=== PATIENT | male | born 1950 | race Two or more races ===

== ENCOUNTER 2024-11-01 21:14 | Emergency (ER) | payer OTHER, SELFPAY ==
[2024-11-01 21:16] VITALS: BP 127/75; PULSE 109; RESP 18; TEMP 36.8; O2SAT 96; BMI 24.7
--- NOTE | 2024-11-02 00:16 | PD.EDWOUND ---
ED Wound/Laceration-RME/HPI General Chief Complaint: Wound/Laceration Stated Complaint: LAC TO RIGHT FINGER Time Seen by Provider: 11/02/24 00:05 Arrival date/time: 11/01/24 21:14 74M with history of HTN and DM presents to ED with R middle finger lac after he accidentally cut himself with a drill. Patient has not had a tetanus shot in the past 5 years. Limitations: no limitations Related Data Home Medications ?Medication ?Instructions ?Recorded ?Confirmed Benazepril Hcl 40 mg PO QAM ##0 03/09/13 Glyburide/Metformin Hcl 2 tab PO BID Diabetes ##0 03/09/13 (Glyburide-Metformin 5-500 Mg) insulin glargine 100 unit/mL (3 10 unit SQ HS Diabetes ##0 03/09/13 mL) subcutaneous pen (Lantus Solostar U-100 Insulin) pioglitazone 45 mg tablet (Actos) 45 mg PO QDAY Diabetes #0 tabs 03/09/13 sitagliptin phosphate 100 mg 100 mg PO QDAY Diabetes #0 tabs 03/09/13 tablet (Januvia) Albuterol Sulfate HFA (INHALER) 2 puff inhalation Q6HR #0 05/13/13 (PROVENTIL HFA (INHALER)) inhalations Dutasteride/Tamsulosin HCl (Ana María 1 cap QDAY ##0 05/13/13 0.5-0.4 mg Capsule) Tiotropium [place] * (SPIRIVA *) 1 cap inhalation QDAY #0 puffs 05/13/13 Previous Rx's ?Medication ?Instructions ?Recorded amoxicillin 875 mg-potassium 1 tab PO BID 7 days #14 tabs 11/02/24 clavulanate 125 mg tablet Allergies Allergy/AdvReac Type Severity Reaction Status Date / Time No Known Allergies Allergy Unknown Verified 06/24/14 09:11 Review of Systems Review of Systems Systems Reviewed: All systems reviewed, normal except as documented Constitutional Constitutional: Reports system reviewed and no additional complaints, except as documented, Denies fever(s) and Denies headache(s) ENT Ears, Nose, Mouth, and Throat: Denies disequilibrium and Denies headache(s) Cardiovascular Cardiovascular: Reports system reviewed and no additional complaints, except as documented, Denies chest pain and Denies dyspnea Respiratory Respiratory: Reports system reviewed and no additional complaints, except as documented, Denies cough and Denies dyspnea Gastrointestinal Gastrointestinal: Reports system reviewed and no additional complaints, except as documented, Denies abdominal pain, Denies nausea and Denies vomiting Integumentary/Breasts Skin/Breast: Reports as per HPI and Reports skin pain Neurologic Neurologic: Reports system reviewed and no additional complaints, except as documented, Denies confusion, Denies disequilibrium and Denies headache(s) Psychiatric Psychiatric: Denies confusion Past Medical History Social History SMOKING STATUS: Never smoker ED Exam General Limitations: Present no limitations General appearance: Present alert and in no apparent distress Head Head exam: Present atraumatic Neck Neck exam: Present normal inspection, full ROM and trachea midline Chest Chest inspection: Present normal inspection and symmetric chest wall rise Extremities Exam Extremities exam: Present full ROM Expanded Upper Extremity Exam Hand exam: Present full ROM, abrasion (R middle finger tip 3 cm semi-circular) and skin avulsion Back Exam Back exam: Present normal inspection and full ROM Neurological Exam Neurological exam: Present alert, oriented X3 and CN II-XII intact Psychiatric Psychiatric exam: Present normal affect and normal mood Skin Skin exam: Present warm, dry, intact and normal color Course Quality Measures none Orders Category Date Time Status Set Up Suture Tray STAT Care 11/02/24 00:05 Active Wound Care NOW Care 11/02/24 00:05 Active Amoxicillin/Pot Clav 875 [Augmentin 875] Med 11/02/24 00:18 Discontinued 1 tab PO X1 ONE TET,DIP/PERT AC (Adult)-Tdap [Boostrix Adult (Tdap) Med 11/02/24 00:05 Discontinued Vacc] 0.5 ml IMI .ONCE ONE Vital Signs Vital signs: Vital Signs Temperature 98.2 F 11/01/24 21:16 Pulse Rate 109 H 11/01/24 21:16 Respiratory Rate 18 11/01/24 21:16 Blood Pressure 127/75 11/01/24 21:16 Pulse Oximetry (%) 96 11/01/24 21:16 Oxygen Delivery Method Room Air 11/01/24 21:16 O2 at 96% on RA and WNLs Wound / Laceration MDM Narrative MDM Narrative:: 74M with history of HTN and DM presents to ED with R middle finger lac after he accidentally cut himself with a drill. Patient has not had a tetanus shot in the past 5 years. Physical exam reveals 3 cm semi-circular lac on R middle finger tip with partial avulsion. ROM intact. Patient is afebrile, calm, and alert. Wound cleaned/irrigated and closed with 15 stitches. Counseled to have them removed in about 14 days. Tdap and ABX prophylaxis given. Patient data External records reviewed:: None Clinical information provided by:: patient Social determinants that could affect healthcare access:: none Patient has the following chronic illnesses:: DM and HTN How is presenting disease/condition affected by chronic disease/condition?: exacerbated by Evaluation data The following diagnostics were reviewed and interpreted by me:: other (specify) (none) Lab and/or radiology exams considered but not ordered:: not ordered Interpretation Summary: n/a Medications / Prescriptions Medications or Prescriptions considered but not ordered:: ordered Medication administrations:: Medication Administration History Discontinued Medications Amoxicillin/Clavulanate Potassium (Amoxicillin/Pot Clav 875 Tablet) 1 tab PO X1 ONE Stop: 11/02/24 00:19 Diphtheria/Tetanus/Acell Pertussis (Diphth,Pertuss(Acell),Tet Vac 0.5 Ml Syr- Adult) 0.5 ml IMi .ONCE ONE Stop: 11/02/24 00:06 above Consultations Consultation(s) initiated? (list below): No Diagnosis Wound Differential Diagnosis: laceration, abrasion and avulsion of skin Most likely diagnosis given after review of the tests above:: avulsion of skin and laceration Admission Indicated Admission indicated?: not indicated Admission Request Was there a request for admission?: No Disposition Plan Disposition Plan: Discharge Discharge Attestation Discharge Attestation: The patient and all family members were given an opportunity to ask questions and understood the discharge instructions. Discharge instructions specifically effects, indications for sooner follow up or return to the emergency department, and the expected course of current diagnosis. Patient condition: Stable Discharge Plan Plan Patient Disposition: HOME (Self Care) Discharge Disposition comment: Stable Prescriptions/Referrals Prescriptions/Med Rec: New amoxicillin-pot clavulanate 875-125 mg tablet 1 tab PO BID 7 Days Qty: 14 0RF No Action pioglitazone [Actos] 45 MG tablet 45 mg PO QDAY Qty: 0 Patient Comments: FOR DIABETES sitagliptin phosphate [Januvia] 100 MG tablet 100 mg PO QDAY Qty: 0 insulin glargine [Lantus Solostar U-100 Insulin] 3 ML insulin pen 10 unit SQ HS Qty: 0 Benazepril Hcl 40 MG tablet 40 mg PO QAM Qty: 0 Glyburide/Metformin Hcl (Glyburide-Metformin 5-500 Mg) 1 TAB tablet 2 tab PO BID Qty: 0 Albuterol Sulfate HFA (INHALER) (PROVENTIL HFA (INHALER)) 8.5 GM HFA.AER.AD 2 puff Inhalation Q6HR Qty: 0 Dutasteride/Tamsulosin HCl (Ana María 0.5-0.4 mg Capsule) 1 EACH CPMP.24HR 1 cap QDAY Qty: 0 Tiotropium [place] * (SPIRIVA *) 18 MCG CAP.W.DEV 1 cap Inhalation QDAY Qty: 0 Referrals: Nisreen Gomez MD [Primary Care Provider] - In 1 week Problem List Clinical Impression: Laceration, Avulsion of skin Patient/Caregiver Discharge Instructions Education Materials: ED Laceration Hand with ... Additional Instructions: Please follow-up with PCP within 24-48 hours and return immediately if symptoms worsen. Have stitches removed in about 10-14 days. Print Language: Lithuanian Stand Alone Forms: Patient Portal Info Letter EMILY/JUAQUIN Supervising Physician EMILY/JUAQUIN Supervising Physician: Dr. Vale
[2024-11-02] MEDS: AMOXICILLIN/POT CLAV 875 TABLET 1 TAB PO (01:20)
[2024-11-02] MEDS: DIPHTH,PERTUSS(ACELL),TET VAC 0.5 ML SYR- ADULT IMi (01:21)
[2024-11-02 01:28] VITALS: RESP 16
== END 2024-11-02 01:28 | disposition home or self-care (01) ==
PROVIDERS: Emergency Provider Emergency Medicine; PCP Family Medicine
DX: S61.212A Laceration without foreign body of right middle finger without damage to nail, initial encounter (principal); Z23 Encounter for immunization; E11.9 Type 2 diabetes mellitus without complications; I10 Essential (primary) hypertension; Z79.4 Long term (current) use of insulin; Z79.84 Long term (current) use of oral hypoglycemic drugs; W29.8XXA Contact with other powered hand tools and household machinery, initial encounter
CPT/HCPCS: 12002; 90471; 90715; 99284; A9270

== ENCOUNTER 2024-12-29 15:32 | Emergency (ER) | payer OTHER, SELFPAY ==
[2024-12-29 15:47] VITALS: BP 134/69; PULSE 81; RESP 19; TEMP 36.1; O2SAT 98; BMI 23.7
--- NOTE | 2024-12-29 16:06 | EDNOTE_ITS ---
<Statement entered by Delisa Zambrano MD - 12/29/24 16:26> As co-signing physician, I was present and available for consult prn. I concur with the plan and care as documented by the midlevel provider. ED Ear RME/HPI General Chief complaint: Ear Stated complaint: RIGHT EAR PAIN RADIATING TO BACK OF HEAD Time Seen by Provider: 12/29/24 15:40 Source: patient Arrival date/time: 12/29/24 15:32 74-year-old male with no known medical history presents to the emergency room with a chief complaint of tenderness in his right ear x 3 days Mode of arrival: ambulatory Limitations: no limitations Related Data Home Medications ?Medication ?Instructions ?Recorded ?Confirmed Benazepril Hcl 40 mg PO QAM ##0 03/09/13 Glyburide/Metformin Hcl 2 tab PO BID Diabetes ##0 (Glyburide-Metformin 5-500 Mg) insulin glargine 100 unit/mL (3 10 unit SQ HS Diabetes ##0 03/09/13 mL) subcutaneous pen (Lantus Solostar U-100 Insulin) pioglitazone 45 mg tablet (Actos) 45 mg PO QDAY Diabet es #0 tabs 03/09/13 sitagliptin phosphate 100 mg 100 mg PO QDAY Diabetes # 0 tabs 03/09/13 tablet (Januvia) Albuterol Sulfate HFA (INHALER) 2 puff inhalation Q6HR #0 05/13/13 (PROVENTIL HFA (INHALER)) inhalations Dutasteride/Tamsulosin HCl (Ana María 1 cap QDAY ##0 05/13 0.5-0.4 mg Capsule) Tiotropium [place] * (SPIRIVA *) 1 cap inhalation QDAY #0 puffs 05/13/13 Previous Rx's ?Medication ?Instructions ?Recorded amoxicillin 875 mg-potassium 1 tab PO BID 7 days #14 t abs 12/29/24 clavulanate 125 mg tablet ofloxacin 0.3 % ear drops 5 drp otic (ear) QDAY 7 days #5 mL 12/29/24 Allergies Allergy/AdvReac Type Severity Reaction Status Date / Time No Known Allergies Allergy Unknown Verified 06/24/14 09:11 Review of Systems Review of Systems Systems Reviewed: All systems reviewed, normal except as documented Constitutional Constitutional: Reports system reviewed and no additional complaints, except as documented, Denies fatigue, Denies fever(s), Denies headache(s) and Denies weakness Eyes Eyes: Reports system reviewed and no additional complaints, except as documented, Denies blurry vision and Denies change in vision ENT Ears, Nose, Mouth, and Throat: Reports system reviewed and no additional com plaints, except as documented, Denies otalgia, Denies headache(s), Denies nasal congestion, Denies throat swelling and Denies vertigo Cardiovascular Cardiovascular: Reports system reviewed and no additional complaints, except as documented, Denies chest pain, Denies dyspnea and Denies dyspnea on exertion Respiratory Respiratory: Reports system reviewed and no additional complaints, except as documented, Denies chest congestion, Denies cough, Denies dyspnea, Denies dyspnea on exertion and Denies wheezing Gastrointestinal Gastrointestinal: Reports system reviewed and no additional complaints, except as documented, Denies abdominal pain, Denies cramping, Denies nausea and Denies vomiting Genitourinary Genitourinary: Reports system reviewed and no additional complaints, except as documented, Denies dysuria and Denies hematuria Musculoskeletal Musculoskeletal: Reports system reviewed and no additional complaints, except as documented and Denies back pain Integumentary/Breasts Skin/Breast: Reports system reviewed and no additional complaints, except as documented and Denies wounds Neurologic Neurologic: Reports system reviewed and no additional complaints, except as documented, Denies confusion, Denies headache(s), Denies lack of coordination, Denies vertigo and Denies weakness Psychiatric Psychiatric: Reports system reviewed and no additional complaints, except as documented, Denies anxiety, Denies confusion, Denies depression, Denies paranoia, Denies suicidal ideation and Denies tactile hallucinations Endocrine Endocrine: Reports system reviewed and no additional complaints, except as documented and Denies fatigue Hematologic/Lymphatic Hematologic/Lymphatic: Reports system reviewed and no additional complaints, except as documented and Denies lymphadenopathy Allergic/Immunologic Allergic/Immunologic: Reports system reviewed and no additional complaints, except as documented, Denies throat swelling, Denies urticaria and Denies wheezing Past Medical History Social History SMOKING STATUS: Never smoker ED Exam General Limitations: Present no limitations General appearance: Present alert and in no apparent distress Head Head exam: Present atraumatic Eye Eye exam: Present normal appearance, PERRL and EOMI ENT ENT exam: Present normal exam, normal oropharynx and mucous membranes moist Expanded ENT Exam External ear exam: Present external tenderness TM/Canal exam: Right TM: erythema, bulging, canal discharge and canal tenderness Neck Neck exam: Present normal inspection, full ROM and trachea midline Chest Chest inspection: Present normal inspection and symmetric chest wall rise Respiratory Respiratory exam: Present normal lung sounds bilaterally Cardiovascular Cardiovascular exam: Present regular rate, normal rhythm and normal heart sounds Abdominal Exam Abdominal exam: Present soft and normal bowel sounds Extremities Exam Extremities exam: Present normal inspection and full ROM Back Exam Back exam: Present normal inspection and full ROM Neurological Exam Neurological exam: Present alert, oriented X3 and CN II-XII intact Psychiatric Psychiatric exam: Present normal affect and normal mood Skin Skin exam: Present warm, dry, intact and normal color Course Quality Measures none Orders Category Date Time Status cefTRIAXone [Rocephin] 1,000 mg Med 12/29/24 16:05 Discontinued Lidocaine 1% 20 ml [Xylocaine 1% 20 ML] 2.1 ml IM X1 Vital Signs Vital signs: Vital Signs Temperature 97.0 F 12/29/24 15:47 Pulse Rate 81 12/29/24 15:47 Respiratory Rate 19 12/29/24 15:47 Blood Pressure 134/69 H 12/29/24 15:47 Pulse Oximetry (%) 98 12/29/24 15:47 Oxygen Delivery Method Room Air 12/29/24 15:47 Ear MDM Narrative MDM Narrative:: 74-year-old male with no known medical history presents to the emergency room with a chief complaint of tenderness in his right ear x 3 days Patient is hemodynamically stable and in no apparent distress Physical examination shows erythema and drainage in the right tympanic membrane. There is external ear canal tenderness The findings are consistent with otitis media. Antibiotic was sent to the patient's pharmacy Patient was discharged and educated to follow-up with primary care provider in the next 24 to 48 hours and return to the emergency room for any evidence of worsening signs or symptoms Patient data External records reviewed:: [facility] previous records Clinical information provided by:: patient Social determinants that could affect healthcare access:: none Patient has the following chronic illnesses:: No chronic illness How is presenting disease/condition affected by chronic disease/condition?: no chronic disease Evaluation data The following diagnostics were reviewed and interpreted by me:: lab results and radiology exam(s) Lab and/or radiology exams considered but not ordered:: Labs and radiology exams considered and ordered Interpretation Summary: N/A Medications / Prescriptions Medications or Prescriptions considered but not ordered:: Medication given Medication administrations:: Medication Administration History Discontinued Medications Ceftriaxone Sodium 1,000 mg/ (Lidocaine HCl 2.1 ml) 0 mg IM X1 ONE Stop: 12/29/24 16:06 Medication given Consultations Consultation(s) initiated? (list below): No Diagnosis Ear Differential Diagnosis: otitis externa, otitis media, foreign body in ear and ruptured TM Most likely diagnosis given after review of the tests above:: Otitis media Admission Indicated Admission indicated?: not indicated Admission Request Was there a request for admission?: No Disposition Plan Disposition Plan: Discharge Discharge Attestation Discharge Attestation: The patient and all family members were given an opportunity to ask questions and understood the discharge instructions. Discharge instructions specifically effects, indications for sooner follow up or return to the emergency department, and the expected course of current diagnosis. Patient condition: Stable Discharge Plan Plan Patient Disposition: HOME (Self Care) Discharge Disposition comment: Stable Prescriptions/Referrals Prescriptions/Med Rec: New ofloxacin 0.3 % drops 5 drp otic (ear) QDAY 7 Days Qty: 5 0RF amoxicillin-pot clavulanate 875-125 mg tablet 1 tab PO BID 7 Days Qty: 14 0RF No Action pioglitazone [Actos] 45 MG tablet 45 mg PO QDAY Qty: 0 Patient Comments: FOR DIABETES sitagliptin phosphate [Januvia] 100 MG tablet 100 mg PO QDAY Qty: 0 insulin glargine [Lantus Solostar U-100 Insulin] 3 ML insulin pen 10 unit SQ HS Qty: 0 Benazepril Hcl 40 MG tablet 40 mg PO QAM Qty: 0 Glyburide/Metformin Hcl (Glyburide-Metformin 5-500 Mg) 1 TAB tablet 2 tab PO BID Qty: 0 Albuterol Sulfate HFA (INHALER) (PROVENTIL HFA (INHALER)) 8.5 GM HFA.AER.AD 2 puff Inhalation Q6HR Qty: 0 Dutasteride/Tamsulosin HCl (Ana María 0.5-0.4 mg Capsule) 1 EACH CPMP.24HR 1 cap QDAY Qty: 0 Tiotropium [place] * (SPIRIVA *) 18 MCG CAP.W.DEV 1 cap Inhalation QDAY Qty: 0 Problem List Clinical Impression: Otitis media Patient/Caregiver Discharge Instructions Education Materials: ED Otitis Media Antibiotic ... Additional Instructions: Por favor, consulte con lazo m?dico de cabecera en las pr?ximas 24 a 48 horas. Los antibi?ticos se purdy enviado a lazo farmacia; por favor, rec?jalos y t?melos seg?n las indicaciones. Si observa alg?n empeoramiento de los signos o s?ntomas, regrese inmediatamente a urgencias. Print Language: Com[place]an Stand Alone Forms: Jazmine Award Info., Work/School Release, Patient Portal Info Letter PA/CONSTRUCTION SALES MANAGER Supervising Physician PA/CONSTRUCTION SALES MANAGER Supervising Physician: Dr. Ibarra
[2024-12-29] MEDS: cefTRIAXone 1,000 MG, LIDOCAINE 1% 20 ML 2.1 ML IM (16:27)
== END 2024-12-29 17:32 | disposition home or self-care (01) ==
PROVIDERS: Emergency Provider Nurse Practitioner Family; PCP Specialist
DX: H66.91 Otitis media, unspecified, right ear (principal); Z79.84 Long term (current) use of oral hypoglycemic drugs
CPT/HCPCS: 96372; 99281; J0696; J3490

== ENCOUNTER → 2025-01-15 | Outpatient (CLI) | payer OTHER, SELFPAY ==
--- NOTE | 2025-01-15 09:18 | XR_ITS ---
Examination: Abdomen sonogram, Limited Date and time of exam: January 15, 2025, 0928 hours INDICATIONS: Elevated liver function test on laboratory examination performed 3 months ago Technique: Real-time jeffries scale transabdominal sonographic images of the upper abdomen obtained. Findings: Absent gallbladder Enlarged common bile duct 14 mm no definite stones Pancreatic head 1.6 cm Liver 15.7 cm fatty infiltration Normal hepatopetal portal venous flow Patent IVC IMPRESSION: Enlarged common bile duct 14 mm, biliary colic is a clinical consideration, suggest MRCP follow-up to exclude common bile duct stones and/or stricture
== END | disposition home or self-care (01) ==
PROVIDERS: PCP Family Medicine; Referring Provider Family Medicine; Visit Provider Family Medicine
DX: K83.8 Other specified diseases of biliary tract (principal)
CPT/HCPCS: 76705